=== PATIENT | female | born 1995 | race Hispanic/Latino ===

== ENCOUNTER 2016-10-13 13:36 | Emergency (ER) | payer OTHER ==
[~2016-10-13] VITALS: Ht 175.3 cm; Wt 86.4 kg
[2016-10-13 14:06] VITALS: BP 137/74; PULSE 83; RESP 15; O2SAT 99
--- NOTE | 2016-10-13 15:55 | ED.REPORT ---
HPI-Abd Pain F Under 40 Date of Service Oct 13, 2016 ED Provider: Davion Meade PAC History of Present Illness: 21yo female reports has had 2 days of crampy pelvic pain. Went to Urgent care clinic yesterday and donated a UA. She was subsequently told "I'm and I have a yeast infection." LMP 08/05/16. . No vag spotting, but does complain of scant discharge. No fever, N/V/D. Nursing Notes Stated Complaint: STOMACH PAIN Chief Complaint: & Delivery Nursing Notes Reviewed: Yes Allergies: Coded Allergies: No Known Allergies (Unverified , 02/26/16) Scheduled Amoxicillin (Amoxicillin) 875 Mg Tablet 875 MG PO BID General Time Seen by MD: 15:36 Chief Complaint Abdominal pain Hx Obtained From: Patient Risk Factors Ectopic Risk Stratification No risk factors CAD Risk Stratification No risk factors TAD Risk Stratification Risk factors reviewed Past Medical History Past Medical History None reported. Past Surgical History None reported. Smoking History Never Smoker Social History Alcohol Use: Denies alcohol use Drug Use: Denies drug use Other Social History: Good social support, Lives with parents, Local resident Ambulatory Status Independent Review of Systems Constitutional: Denies: Chills, Fever Respiratory: Denies: Shortness of breath Cardiovascular: Denies: Chest pain Female: Reports: Pelvic pain, , Urinary urgency, Vaginal discharge, Denies: Dysuria, Vaginal bleeding - abnl Complete sys rev & neg: except as marked. Physical Exam Initial Vital Signs Vital Signs (First) Date Time Temp Pulse Resp B/P Pulse Ox O2 Delivery O2 Flow Rate FiO2 10/13/16 14:06 36.4 83 15 137/74 99 Room Air Initial VS: Reviewed General/Constitutional: Awake, Alert, Well hydrated, Not toxic appearing Respiratory / Chest: Breath sounds NL, Breath sounds = bilat, No respiratory distress Cardiovascular: Heart rate NL, Regular rhythm, Heart sounds NL Abdomen: Soft, Non-tender, No guarding, No rebound Female Genitourinary: Arts Therapist present, External genitalia NL, No bleeding, No discharge, Os closed, No adnexal mass, No adnexal tenderness, No uterine enlargement Interpretation & Diagnostics Interpretation & Diagnostics: Bacturia with WBCs warrants treatment. IUP by sonogram, 9w4d, EDC 05/14/17. Lab Results Interpretation Result Diagram: 10/13/16164910/13/16 165 Test 10/13/16 16:50 10/13/16 17:31 10/13/16 17:52 10/13/16 19:33 White Blood Count 11.3th/mm3 (3.8-10.1) Red Blood Count 4.58mil/mm3 (3.90-5.20) Hemoglobin 13.2g/dL (12.0-15.6) Hematocrit 38.6% (35.0-46.0) Mean Corpuscular Volume 84.3fL (81-100) Mean Corpuscular Hemoglobin 28.8pg (27.0-35.0) Mean Corpuscular Hemoglobin Concent 34.2% (32.0-37.0) Red Cell Distribution Width 13.5% (12.3-15.4) Platelet Count 280bil/L (150-400) Neutrophils (%) (Auto) 55.7% (40-74) Lymphocytes (%) (Auto) 35.4% (14-46) Monocytes (%) (Auto) 7.3% (4-12) Eosinophils (%) (Auto) 1.0% (0-5) Basophils (%) (Auto) 0.4% (0-3) Sodium Level 138mEq/L (134-144) Potassium Level 3.5mEq/L (3.5-5.2) Chloride Level 104mEq/L (97-108) Carbon Dioxide Level 21mmol/L (18-29) Blood Urea Nitrogen 6mg/dL (6-20) Creatinine 0.46mg/dL (0.57-1.00) Estimat Glomerular Filtration Rate 246mL/min (>59) Glucose Level 85mg/dL (60-99) Calcium Level 9.3mg/dL (8.5-10.1) Total Bilirubin 0.3mg/dL (0.0-1.2) Aspartate Amino Transf (AST/SGOT) 26U/L (0-50) Alanine Aminotransferase (ALT/SGPT) 52U/L (0-32) Alkaline Phosphatase 64U/L (25-150) Total Protein 8.4g/dL (6.4-8.4) Albumin 4.3g/dL (3.4-5.0) Hold Amado Top Tube Received (Received) Hold Urine Received (Received) Urine Color Yellow (YELLOW) Urine Appearance Cloudy (CLEAR,HAZY) Urine pH 7.0 (5.0-8.0) Urine Specific [place]ger 1.010 (1.003-1.035) Urine Protein Negativemg/dL (NEG,TRACE) Urine Glucose (UA) Negativemg/dL (NEGATIVE) Urine Ketones 40mg/dL (NEGATIVE) Urine Occult Blood Trace (NEGATIVE) Urine Nitrite Negative (NEGATIVE) Urine Bilirubin Negative (NEGATIVE) Urine Urobilinogen Normalmg/dL (NORMAL) Urine Leukocyte Esterase Trace (NEGATIVE) Urine RBC 0-2/hpf (0-2) Urine WBC 6-10/hpf (0-5) Urine Epithelial Cells Occasional/hpf (NONE-MOD) Urine Crystals Amorphous phosphates Urine Bacteria Moderate/hpf (NONE-FEW) Urine Hyaline Casts None/lpf (NONE) Urine Granular Casts None seen (NONE SEEN) Urine Waxy Casts None seen (NONE SEEN) Urine Red Blood Cell Casts None seen (NONE SEEN) Urine White Blood Cell Casts None seen (NONE SEEN) Urine Mucus None seen (None Seen) Urine Trichomonas None seen (NONE SEEN) Urine Yeast None (NONE SEEN) Urinalysis Comment None Urine Culture Reflexed Indicated US Focused OB +/- 7 days from 14 weeks to 15 weeks 6 days gestation, +/- 10 days from 16 weeks to 21 weeks 6 days gestation, +/- 2 weeks from 22 weeks to 27 weeks 6 days gestation, +/- 3 weeks for 28 weeks gestation or later. PROCEDURE: US OB<14 WKS+OB TRANSVAG INDICATIONS: pelvic pain OUTSIDE/PRIOR DATING DATA: Last menstrual period (LMP): 08/05/2016 LMP-based estimated date of delivery (RONAL): 05/12/2017. First dating scan (date and location): 10/13/2016. Estimated date of delivery (RONAL) from first dating scan: 05/14/2017. TECHNIQUE: Real-time scanning was performed of the fetus and maternal pelvic organs, with image documentation. Endovaginal scanning was also performed to better visualize the fetus and maternal ovaries. COMPARISON: None. 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 [place] Rump Length: 2.71 cm Gestational Age (CRL): 9 weeks, 4 days Summary Fetus Summary Heart Rate: 180 bpm Comments: A normal yolk sac is noted. No perigestational bleeds. Measurement variability in dating: +/- 4 weeks by LMP, +/- 7 days by mean sac diameter (use before 6 weeks gestation if crown-rump length not able to be measured), +/- 5 days by crown-rump length (up to 8 weeks 6 days gestation), +/- 7 days by crown-rump length (from 9 weeks to 13 weeks 6 days gestation). Maternal organs: Ovaries appear normal, corpus luteum on the left. Limited images through the kidneys demonstrate no hydronephrosis. IMPRESSION: Single, live intrauterine gestation with crown-rump length of 2.7 cm corresponding to estimated gestational age of 9 weeks 4 days, RONAL 05/14/2017, concordant with age by dates. heart rate 180 bpm. Left corpus luteum cyst. Dictated by: Sulaiman Sanford M.D. on 10/13/2016 at 16:44 Approved by: Sulaiman Sanford M.D. on 10/13/2016 at 16:46 Re-Eval/Medical Decision Med Decision/Clinical Course Med Decision/Clinical Course: Labs reviewed, case discussed with Dr. Calle who advises treatment of bacturia in . Will dose with Amoxil tonight and give 5 day course. Pt. has first OB appointment on 10/25/16. Counseled Regarding: Diagnosis, Lab results, Need for follow-up, When/why to return to ED Discharge & Departure Primary Impression: UTI (urinary tract infection) Urinary tract infection type: site unspecified Hematuria presence: without hematuria Qualified Code: N39.0 - Urinary tract infection, site not specified Additional Impression: Weeks of gestation: 9 weeks Qualified Code: Z3A.09 - 9 weeks gestation of Disposition: Home Patient Instructions: Urinary Tract Infection in (ED) Additional Instructions: Push fluids, take meds as prescribed. Follow up with [facility] as scheduled. Return to ER if anything worsens. Referrals: [facility] Other as scheduled EDSupervising Provider for APC: Jorden Calle MD Attending Statment I saw the patient with the PA. I agree with the plan and findings as documented above. Asymptomatic bacteriuria. Plan outpatient treatment with antibiotics, OB follow -up. Davion Meade Oct 13, 2016 15:55 Jorden Calle MD Oct 14, 2016 02:46
--- NOTE | 2016-10-13 16:48 | DRSVH ---
+/- 7 days from 14 weeks to 15 weeks 6 days gestation, +/- 10 days from 16 weeks to 21 weeks 6 days g estation, +/- 2 weeks from 22 weeks to 27 weeks 6 days gestation, +/- 3 weeks for 28 weeks gestation or later. PROCEDURE: US OB<14 WKS+OB TRANSVAG INDICATIONS: pelvic pain OUTSIDE/PRIOR DATING DATA: Last menstrual period (LMP): 08/05/2016 LMP-based estimated date of delivery (RONAL): 05/12/2017. First dating scan (date and location): 10/13/2016. Estimated date of delivery (RONAL) from first dating scan: 05/14/2017. TECHNIQUE: Real-time scanning was performed of the fetus and maternal pelvic organs, with image documentation. Endovaginal scanning was also performed to better visualize the fetus and maternal ovaries. COMPARISON: None. FINDINGS: Embryo: OB-SKULL SPLITTER Ultrasound Procedure Report Early Gestation BiometryGroup Mean Gestational Sac Diameter: Not measured Gestational Age (MGSD): N./A. [place] Rump Length: 2.71 cm Gestational Age (CRL): 9 weeks, 4 days Summary Fetus Summary Heart Rate: 180 bpm Comments: A normal yolk sac is noted. No perigestational bleeds. Measurement variability in dating: +/- 4 weeks by LMP, +/- 7 days by mean sac diameter (use before 6 weeks gestation if crown-rump length not able to be measured), +/- 5 days by crown-rump length (up t o 8 weeks 6 days gestation), +/- 7 days by crown-rump length (from 9 weeks to 13 weeks 6 days gestati on). Maternal organs: Ovaries appear normal, corpus luteum on the left. Limited images through the kidne ys demonstrate no hydronephrosis. IMPRESSION: Single, live intrauterine gestation with crown-rump length of 2.7 cm corresponding to estimated gesta tional age of 9 weeks 4 days, RONAL 05/14/2017, concordant with age by dates. heart rate 180 bpm. Left corpus luteum cyst. Dictated by: Sulaiman Sanford M.D. on 10/13/2016 at 16:44 Approved by: Sulaiman Sanford M.D. on 10/13/2016 at 16:46
[2016-10-13 16:58] LABS: BASOPHILS % (AUTO) 0.4 % (0-3); MONOCYTES % (AUTO) 7.3 % (4-12); Mean Corpuscular Hemoglobin 28.8 pg (27.0-35.0); Mean Corpuscular Volume 84.3 fL (81-100); NEUTROPHILS % (AUTO) 55.7 % (40-74); Platelet Count 280 bil/L (150-400)
[2016-10-13 19:56] LABS: APPEARANCE,URINE CLOUDY (CLEAR,HAZY); COLOR,URINE YELLOW (YELLOW)
[2016-10-13 19:57] LABS: OCCULT BLOOD,URINE TRACE (NEGATIVE); UROBILINOGEN,URINE NORMAL (NORMAL)
[2016-10-13] MEDS ORDERED: AMOX875T2 PO (20:19)
[2016-10-13 21:05] VITALS: BP 114/66; PULSE 76; RESP 16; O2SAT 100
== END 2016-10-13 21:03 | disposition home or self-care (01) ==
LOC: SED 13:36
DX: O23.41 Unspecified infection of urinary tract in pregnancy, first trimester (principal); B96.20 Unspecified Escherichia coli [E. coli] as the cause of diseases classified elsewhere; Z3A.09 9 weeks gestation of pregnancy

== ENCOUNTER 2016-10-19 06:00 | Emergency (ER) | payer OTHER ==
[~2016-10-19] VITALS: Ht 175.3 cm; Wt 88.6 kg
[~2016-10-19 06:00] MED LIST: AMOX875T2 PO
[2016-10-19 06:13] VITALS: BP 138/85; PULSE 82; RESP 18; O2SAT 100
--- NOTE | 2016-10-19 06:26 | ED.REPORT ---
HPI-Preg Under 20 Weeks Date of Service Oct 19, 2016 ED Provider: Yoni Roper MD Patient is an otherwise healthy 21 year old female who is at 11 weeks gestation complaining of vaginal spotting onset last night at 2230. She has gone through one pad since 2230 last night. She denies fevers, vomiting, abdominal cramping, dysuria, or any other symptoms. She had an ultrasound last week which dated her at 10 weeks gestation. This is her first . Nursing Notes Stated Complaint: 11 WKS , SPOTTING Chief Complaint: Female Abdominal Pain Nursing Notes Reviewed: Yes Allergies: Coded Allergies: No Known Allergies (Unverified , 10/19/16) Scheduled Amoxicillin (Amoxicillin) 875 Mg Tablet 875 MG PO BID General Time Seen by Provider: 06:22 Chief Complaint Vaginal bleeding Context: : Known 1st trim Hx Obtained From: Patient, Other family... (Mother) Arrived By: Walk-in Onset Occurred: 5 - 8 hours ago Symptom Duration: Since onset Recent Healthcare: Recent doctor visit Similar Sx Previous: No Past Medical History Past Medical History None reported. Past Surgical History None reported. Smoking History Never Smoker Social History Alcohol Use: Denies alcohol use Drug Use: Denies drug use Other Social History: Good social support, Lives with parents, Local resident Ambulatory Status Independent Review of Systems Constitutional: Denies: Fever GI: Denies: Abdominal pain, Vomiting Female: Reports: Vaginal bleeding - abnl Complete sys rev & neg: except as marked. Physical Exam Initial Vital Signs Vital Signs (First) Date Time Temp Pulse Resp B/P Pulse Ox O2 Delivery O2 Flow Rate FiO2 10/19/16 06:13 36.8 82 18 138/85 100 Room Air Initial VS: Reviewed, Vital signs normal Head / Eyes: Atraumatic, Normocephalic Neck: Full range of motion Respiratory: Breath sounds normal, Clear to auscultation, No respiratory distress Cardiovascular: Regular rate & rhythm, Heart sounds normal Skin: Warm, Dry Neurologic: Alert, Oriented, Nonfocal Psychiatric: Mood/affect normal, Behavior normal, Normal thought content General/Constitutional: Awake, Alert, No acute distress Abdomen: Atraumatic, Soft, Non-tender Female Genitourinary: Exam deferred : Exam deferred Back: No CVA tenderness Interpretation & Diagnostics Lab Results Interpretation Result Diagram: 10/19/16 0655 Test 10/19/16 06:55 10/19/16 07:21 White Blood Count 11.0th/mm3 (3.8-10.1) Red Blood Count 4.56mil/mm3 (3.90-5.20) Hemoglobin 13.2g/dL (12.0-15.6) Hematocrit 38.9% (35.0-46.0) Mean Corpuscular Volume 85.3fL (81-100) Mean Corpuscular Hemoglobin 28.9pg (27.0-35.0) Mean Corpuscular Hemoglobin Concent 33.9% (32.0-37.0) Red Cell Distribution Width 13.1% (12.3-15.4) Platelet Count 278bil/L (150-400) HCG Beta Subunit [id number]/mL Hold Urine Received (Received) US Focused OB 1.2cm subchorionic hemorrhage no miscarriage Exam Performed by: Allied health pract Re-Eval/Medical Decision Med Decision/Clinical Course 21-year-old female at 11 weeks gestational age presenting with vaginal spotting times one day. Spotting resolved while she was here. Prior to that an ultrasound was performed with normal cardiac activity small subchorionic hemorrhage. Her hemoglobin is stable. She is stable for discharge home with plans to follow up with primary doctor and OBGYN in 1-2 days. If bleeding persists she will return in 2 days or sooner if any sign symptoms anemia or worsening bleeding.. Return precautions given. Re-Evaluation/Progress : Time of Eval: 07:43 Re-Evaluation/Progress Note: Discussed US results and plan for discharge. Patient understands and agrees with plan. All questions addressed at this time. Counseled Regarding: Diagnosis, Lab results, Need for follow-up, When/why to return to ED Discharge & Departure Primary Impression: Vaginal bleeding in Trimester: first trimester Qualified Code: O46.91 - Antepartum hemorrhage, unspecified, first trimester Disposition: Home Discharge Condition All VS Reviewed: Yes Condition: Stable Patient Instructions: First Trimester Vaginal Bleed (ED) Additional Instructions: Thank you for entrusting us with your care. You ultrasound showed that your baby is still living with good heart activity. Your labs were reassuring. Follow up with your LEGAL AID in two days for a re-evaluation. Take a daily vitamin. Return to the emergency department in 2 days if you have persistent bleeding. Return immediately for severe bleeding or signs of anemia including dizziness, lightheadedness, chest pain, and fatigue. Referrals: On license of [facility] Scribe Attestation Portions of this note were transcribed by Jimi Elias. I, Dr. Roper personally performed the history, physical exam and medical decision-making; I reviewed and confirmed the accuracy of the information in the transcribed note. Yoni Roper MD Oct 19, 2016 06:26 JIMI ELIAS Oct 19, 2016 06:44
[2016-10-19 06:59] LABS: Mean Corpuscular Hemoglobin 28.9 pg (27.0-35.0); Mean Corpuscular Volume 85.3 fL (81-100)
[2016-10-19 08:09] VITALS: BP 128/71; PULSE 72; RESP 16; O2SAT 98
--- NOTE | 2016-10-19 09:34 | DRSVH ---
+/- 7 days from 14 weeks to 15 weeks 6 days gestation, +/- 10 days from 16 weeks to 21 weeks 6 days g estation, +/- 2 weeks from 22 weeks to 27 weeks 6 days gestation, +/- 3 weeks for 28 weeks gestation or later. PROCEDURE: US OB<14 WKS INDICATIONS: 11 weeks vag bleeding OUTSIDE/PRIOR DATING DATA: Last menstrual period (LMP): 08/05/2016. LMP-based estimated date of delivery (RONAL): 05/12/2017. First dating scan (date and location): 10/13/2016. Estimated date of delivery (RONAL) from first dating scan: 05/14/2017. TECHNIQUE: Real-time scanning was performed of the fetus and maternal pelvic organs, with image documentation. Endovaginal scanning was also performed to better visualize the fetus and maternal ovaries. COMPARISON: [facility], , US OB<14 WKS+OB TRANSVAG, 10/13/2016, 16:16. FINDINGS: Embryo: There is an IUPwith estimated gestational age 10 weeks 3 days based on the current ultrasoun d, indicating appropriate interval growth since the last exam. 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 A 1.8 x 0.5 x 1.3 cm subchorionic hematoma is noted, consisten t with perigestational bleeds. Measurement variability in dating: +/- 4 weeks by LMP, +/- 7 days by mean sac diameter (use before 6 weeks gestation if crown-rump length not able to be measured), +/- 5 days by crown-rump length (up t o 8 weeks 6 days gestation), +/- 7 days by crown-rump length (from 9 weeks to 13 weeks 6 days gestati on). Maternal organs: Ovaries are within normal limits. Limited images through the kidneys demonstrate n o hydronephrosis. IMPRESSION: A single living intrauterine gestation with appropriate interval growth. There is periges tational breech with a 1.8 x 0.5 x 1.3 cm subchorionic hematoma. Dictated by: Fabiola Hall M.D. on 10/19/2016 at 9:25 Approved by: Fabiola Hall M.D. on 10/19/2016 at 9:32
== END 2016-10-19 08:10 | disposition home or self-care (01) ==
LOC: SED 06:00
DX: O20.8 Other hemorrhage in early pregnancy (principal); Z87.891 Personal history of nicotine dependence; Z3A.11 11 weeks gestation of pregnancy

== ENCOUNTER 2016-11-27 15:10 | Emergency (ER) | payer OTHER ==
[~2016-11-27] VITALS: Ht 175.3 cm; Wt 94.5 kg
[2016-11-27 15:16] VITALS: BP 142/75; PULSE 98; RESP 16; O2SAT 99
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
[2016-11-27] MEDS ORDERED: HYDR-4003 PO (16:17)
[2016-11-27 18:59] VITALS: BP 140/65; PULSE 70; RESP 20; O2SAT 97
--- NOTE | 2016-11-27 19:01 | DRSVH ---
PROCEDURE: US OB 1 OR MORE FETUS LIMITED INDICATIONS: trauma, confirm wellbeing OUTSIDE/PRIOR DATING DATA: Last menstrual period (LMP): 08/22 with 17. LMP-based estimated date of delivery (RONAL): 05/12/17. First dating scan (date and location): 10/13/16. Estimated date of delivery (RONAL) from first dating scan: 05/14/17. TECHNIQUE: Real-time scanning was performed of the fetus, with image documentation. COMPARISON: None. FINDINGS: A single living intrauterine gestation is present. Presentation: Breech Placenta: Placental position is anterior, without previa. No plate present the collections to sugge st abruption. Amniotic fluid index: 8.0 cm, normal range is 5-24 cm. heart rate: 150 beats per minute. Maternal cervical canal: 4.9 cm long. Normal lower limit is 2.5 cm. Estimated gestational age from initial scan: 16 weeks 0 days. Biparietal diameter: 3.1 cm corresponding to gestational age of 15 weeks 5 days IMPRESSION: 1. Single living intrauterine redemonstrated without evidence of placental abruption. Dictated by: Andreas Asif M.D. on 11/27/2016 at 18:58 Approved by: Andreas Asif M.D. on 11/27/2016 at 19:00
== END 2016-11-27 18:30 | disposition home or self-care (01) ==
LOC: SED 15:10
DX: O9A.212 Injury, poisoning and certain other consequences of external causes complicating pregnancy, second trimester (principal); S09.8XXA Other specified injuries of head, initial encounter; S20.319A Abrasion of unspecified front wall of thorax, initial encounter; S40.819A Abrasion of unspecified upper arm, initial encounter; Y04.0XXA Assault by unarmed brawl or fight, initial encounter; Y93.89 Activity, other specified; Y99.8 Other external cause status; Y92.89 Other specified places as the place of occurrence of the external cause; O99.332 Smoking (tobacco) complicating pregnancy, second trimester; Z3A.16 16 weeks gestation of pregnancy